=== PATIENT | male | born 1950 | race Caucasian/White ===

== ENCOUNTER 2017-01-05 15:15 | Emergency (ER) | payer MEDICARE, MEDICAID ==
[~2017-01-05] VITALS: Ht 157.5 cm; Wt 60.0 kg
[2017-01-05 15:27] VITALS: Ht 157.5 cm; Wt 60.0 kg
[2017-01-05] MEDS ORDERED: KETOROLAC 30 MG INJ IM STA (15:29)
[2017-01-05] MEDS ORDERED: DIAZEPAM 5 MG/ML SYG IM ONE (15:30)
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
[2017-01-05] MEDS ORDERED: IBUPROFEN 800 MG TAB PO ONE (16:00)
[2017-01-05] MEDS ORDERED: DIAZEPAM 5 MG TAB PO ONE (16:00)
[2017-01-05] MEDS ORDERED: METF500T4 PO (16:15)
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
[2017-01-05 16:29] VITALS: BP 141/89; PULSE 56; RESP 17
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
[2017-01-05] MEDS ORDERED: DIAZ-90 PO (17:05)
[2017-01-05] MEDS ORDERED: IBUP800T25 PO (17:05)
[2017-01-05] MEDS ORDERED: FINA1TAB16 PO (17:09)
== END 2017-01-05 17:29 | disposition home or self-care (01) ==
LOC: E/R 15:15
DX: S20.219A Contusion of unspecified front wall of thorax, initial encounter (principal); S16.1XXA Strain of muscle, fascia and tendon at neck level, initial encounter; S80.01XA Contusion of right knee, initial encounter; E11.9 Type 2 diabetes mellitus without complications; V49.49XA Driver injured in collision with other motor vehicles in traffic accident, initial encounter; Z79.84 Long term (current) use of oral hypoglycemic drugs
CPT/HCPCS: 29505; 70450; 71010; 72125; 73562; 99285; J3360; J1885